=== PATIENT | male | born 1955 | race Caucasian/White ===

== ENCOUNTER 2019-02-02 08:16 | Day surgery (SDC) | payer OTHER ==
[~2019-02-02] VITALS: Ht 185.4 cm; Wt 97.1 kg
[~2019-02-02 08:16] MED LIST: ASCO500 PO; CHOL10002 PO; FISH OIL 1,0001 EAC1 PO; LISI20 PO; Norvasc2.5 MG PO; OXYC10TA19; SYNTHROID25 MCG PO
--- NOTE | 2019-02-02 08:45 | NUR ---
Ambulatory in Day Surgery History, Chart, Medications and Allergies reviewed before start of procedure.Lungs clear T/O to Auscultation. Patient confirms NPO status and agrees with scheduled surgery. Patient reports completing Chlorhexadine shower X2 prior to admission to hospital.Surgical site prepped with 2% Chlorhexidine cloth wipe.
--- NOTE | 2019-02-02 09:33 | NUR ---
FABIAN NASAL SWABS DONE PER PROTOCOL.
--- NOTE | 2019-02-02 11:30 | NUR ---
02/02/19 1130 Angy Santoyo PT VOIDED PRIOR TO COMING THE OR
--- NOTE | 2019-02-02 14:23 | NUR ---
PT ARRIVED TO ROOM AT APPROXIMATELY 1355. PT ALERT AND ORIENTED. DENIES PAIN, DENIES N/V. FAMILY AT THE BEDSIDE. VSS. WILL CONTINUE TO MONITOR.
--- NOTE | 2019-02-02 16:57 | NUR ---
STRAIGHT CATH PT ATTEMPTED TO VOID USING THE URINAL. HE WAS UNABLE TO DO SO AND BLADDER SCAN SHOWED 649ML IN HIS BLADDER. STRAIGHT CATH EMPTIED 1000ML FROM BLADDER. WILL CONTINUE TO MONITOR.
--- NOTE | 2019-02-02 19:27 | NUR ---
SHIFT SUMMARY PT'S LOWER EXTREMITIES HAVE REMAINED MOSTLY NUMB FROM SPINAL ANESTHESIA. PT IS STARTING TO REGAIN FEELING AND MOVEMENT THIS EVENING. PT WAS UNABLE TO PARTICIPATE WITH THERAPY R/T NUMBNESS. HE WAS UNABLE TO VOID AND REQUIRED A STRAIGHT CATH. PT IS TOLERATING PO. VSS. REPORT GIVEN TO TARIK AKERS.
--- NOTE | 2019-02-02 21:30 | NUR ---
C/O BLADDER PAIN, STATES THAT HE HAS BEEN TRYING TO URINATE, BUT HAS BEEN UNABLE. STRAIGHT CATHED USING STERILE TECHNIQUE AFTER BLADDER SCAN SHOWED 710ML. 900ML CLEAR [place] URINE COLLECTED AND DISCARDED. PERICARE COMPLETED, TOLERATED WELL. SAFETY MEASURES IN PLACE. WILL CONTINUE TO MONITOR.
--- NOTE | 2019-02-03 03:00 | NUR ---
ENTERED ROOM TO HANG 0300 HRS ABX. NOTED 500ML IN URINAL, PT STATES THAT HE URINATED ON HIS OWN AT 0214 HRS. VOICES GREAT RELIEF THAT HE WILL NOT REQUIRE ANOTHER STRAIGHT CATH. SAFETY MEASURES IN PLACE. WILL CONTINUE TO MONITOR.
[2019-02-03 05:00] LABS: BASOPHILS ABSOLUTE AUTO 0.01 K/mm3 (0.00-0.23); BASOPHILS PERCENT AUTO 0 % (0-2); EOSINOPHILS PERCENT AUTO 0 % (0-6); Hemoglobin 12.9 g/dL (13.5-17.5); IMMATURE GRAN ABSOLUTE AUTO 0.06 K/mm3 (0.00-0.10); IMMATURE GRAN PERCENT AUTO 0 % (0-1); LYMPHOCYTES ABSOLUTE AUTO 1.46 K/mm3 (0.84-5.20); LYMPHOCYTES PERCENT AUTO 11 % (21-46); MONOCYTES ABSOLUTE AUTO 0.96 K/mm3 (0.16-1.47); MONOCYTES PERCENT AUTO 7 % (4-13); Mean Corpuscular HGB 31.8 pg (26.0-34.0); Mean Corpuscular HGB Conc 33.9 g/dL (31.5-36.5); Mean Corpuscular Volume 94 fL (80-100); Mean Platelet Volume 9.5 fL (9.1-12.4); NEUTROPHILS ABSOLUTE AUTO 11.28 K/mm3 (1.96-9.15); NEUTROPHILS PERCENT AUTO 82 % (41-73); Platelet Count 224 K/mm3 (150-400); RDW Coefficient Variation 11.7 % (11.7-14.2); RDW Standard Deviation 40.3 fL (35.1-46.3); Red Blood Cell Count 4.06 M/mm3 (4.30-5.90); White Blood Cell Count 13.77 K/mm3 (4.00-11.30)
[2019-02-03 05:18] LABS: Anion Gap 9 mmol/L (6-16); Blood Urea Nitrogen 12 mg/dL (8-24); Bun/Creatinine Ratio 13.3 (12.0-20.0); CO2, Blood 24 mmol/L (21-32); Chloride, Blood 108 mmol/L (98-108); Glomerular Filtration Rate >60 (60-); Glucose, Blood 114 mg/dL (70-99); Potassium, Blood 4.2 mmol/L (3.5-5.5); Sodium, Blood 141 mmol/L (136-145)
--- NOTE | 2019-02-03 05:36 | NUR ---
LYING IN SEMI FOWLERS WITH EYES CLOSED. C/O PAIN X2 THIS SHIFT. UNABLE TO VOID, BLADDER SCANED AND STRAIGHT CATHED X1. ABLE TO URINATE AFTER THAT. DENIES FURTHER NEEDS OR WANTS AT THIS TIME. SAFETY MEASURES IN PLACE. WILL GIVE HAND OFF TO ONCOMING SHIFT USING SBAR.
--- NOTE | 2019-02-03 06:26 | NUR ---
AMBULATED IN HALLWAY FOR FIRST TIME WITH FWW AND STANDBY ASSIST X2, TOLERATED WELL. ASSISTED BACK TO BED AND REPOSITIONED FOR COMFORT. C/O PAIN 6/10 TO RIGHT KNEE. MEDICATED PER MD ORDERS. EDUCATED ON PAIN MANAGEMENT, VOICES UNDERSTANDING. SAFETY MEASURES IN PLACE. WILL CONTINUE TO MONITOR.
[2019-02-03] MEDS ORDERED: LO-DOSE ASPIRIN81 MG PO (10:47)
[2019-02-03] MEDS ORDERED: Percocet 5-3251 EACH PO (10:48)
--- NOTE | 2019-02-03 13:03 | NUR ---
Spiritual care visit conducted. I responded to a spiritual care referral and found patient sitting on a chair in patient's room. I introduced myself and patient thanked me for coming.Therapeutic alliance was easily established and so patient openly shared about his life/career/family history as well as his spiritual journey. 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 Patient responded well and stated that he was very encouraged by my visit. Patient expressed gratitude for our conversation and prayer.
--- NOTE | 2019-02-03 14:58 | NUR ---
DISCHARGE PT DISCHARGED HOME FROM UNIT AT APROX 1500. IV REMOVED, PRINTED AND VERBAL DISCHARGE INSTRUCTIONS GIVEN. WHEELCHAIR TO CAR.
== END 2019-02-03 14:57 | disposition home or self-care (01) ==
LOC: ORSCMMR 08:16 → ORD 10:25 → SURS 13:53 → ORSCMMR 02-03 14:57 → SURS 02-03 14:57
PROVIDERS: Orthopaedic Surgery
PROC: 0SRC0JA Replacement of Right Knee Joint with Synthetic Substitute, Uncemented, Open Approach (ICD-10-PCS; principal; 2019-02-02 10:25)
DX: M17.11 Unilateral primary osteoarthritis, right knee (principal); I10 Essential (primary) hypertension; E03.9 Hypothyroidism, unspecified; Z79.899 Other long term (current) drug therapy
CPT/HCPCS: 36415; 51701; 73560-RT; 80048; 85025; 86850; 86900; 86901; 88300; 97110; 97116; 97162; 97530; C1776; J0171; J0690; J0735; J1100; J1170; J1885; J2250; J2370; J2405; J2795; J3010; J7120; Q0163

== ENCOUNTER 2019-03-23 05:53 | Day surgery (SDC) | payer OTHER ==
[~2019-03-23] VITALS: Ht 186 cm; Wt 95.2 kg
[~2019-03-23 05:53] MED LIST changes: +LO-DOSE ASPIRIN81 MG PO; +Percocet 5-3251 EACH PO
--- NOTE | 2019-03-23 07:02 | NUR ---
PT INTO SDS VIA W/C. Patient confirms NPO status and agrees with scheduled surgery. History, Chart, Medications and Allergies reviewed before start of procedure.Lungs clear T/O to Auscultation.
--- NOTE | 2019-03-23 07:50 | NUR ---
03/23/19 0750 Nicole Givens MANIPULATED BY
--- NOTE | 2019-03-23 09:30 | NUR ---
RECEIVED REPORT FROM OSWALD CHAND. WILL ASSUME CARE OF PT.
--- NOTE | 2019-03-23 10:09 | NUR ---
Discharge instructions reviewed with patient. Patient verbalizes understanding. Copy given to patient to take home. PT HAS THE THREE RX. RN CALLED AND VERIFIED THE BEST WAY PT COULD TAKE MEDICATIONS AT HOME. PHARMACIST RAMA, STATED THAT OXYCOTIN AND CELEBREX COULD BE TAKEN TOGETHER IN THE MORNING AND EVENING PER MD ORDER. ALSO SHE STATED THAT THE PERCOCET COULD BE TAKEN BY PT FOR BREAKTHROUGH PAIN AND BEFORE PHYISCAL THERAPY PER EVERY 4-6HOURS ORDERED BY MD. PT AND VERBALIZE UNDERSTAND STATE NO QUESTIONS OR CONCERNS ABOUT D/C. PT HAS NO INCISION. RT KNEE SKIN INTACT. ELEVATED AND HAS ICE ON. WILL SEND ICE PACK HOME WITH PT. Patient States Post-Procedure ride home has been arranged. PT HAS ALL PERSONAL BELONGINGS. UP TO USE THE BATHROOM. WILL DRIVE PT HOME. Discharged via wheelchair to private car for ride home.
--- NOTE | 2019-03-23 10:16 | NUR ---
0900: 2 PERCOCET GIVEN FOR PAIN. MEDICATION EDUCATION DONE WITH PATIENT/FAMILY
== END 2019-03-23 22:58 | disposition home or self-care (01) ==
LOC: ORSCMMR 05:53 → ORD 07:30 → ORSCMMR 07:30
PROVIDERS: Orthopaedic Surgery
PROC: 0SNCXZZ Release Right Knee Joint, External Approach (ICD-10-PCS; principal; 2019-03-23 07:30)
DX: Z96.651 Presence of right artificial knee joint (principal); I10 Essential (primary) hypertension; E03.9 Hypothyroidism, unspecified; Z79.82 Long term (current) use of aspirin; Z79.899 Other long term (current) drug therapy
CPT/HCPCS: 73560-RT; J1885; J2250; J2405; J2704; J3010; J7120